=== PATIENT | female | born 1955 | race American Indian/Alaskan Native ===

== ENCOUNTER 2017-10-11 08:56 | Emergency (ER) | payer OTHER ==
[~2017-10-11] VITALS: Ht 162.6 cm; Wt 115.0 kg
[~2017-10-11 08:56] MED LIST: HYDR-569 PO
[2017-10-11 11:12] VITALS: BP 120/68
== END 2017-10-11 11:13 | disposition home or self-care (01) ==
LOC: ER 08:57
DX: R94.31 Abnormal electrocardiogram [ECG] [EKG] (principal); E11.9 Type 2 diabetes mellitus without complications; Z87.891 Personal history of nicotine dependence; Z88.1 Allergy status to other antibiotic agents; Z88.8 Allergy status to other drugs, medicaments and biological substances
CPT/HCPCS: 93005; 99283

== ENCOUNTER 2018-06-30 09:39 | Inpatient (IN) | payer OTHER ==
[~2018-06-30] VITALS: Ht 162.6 cm; Wt 112.3 kg
[~2018-06-30 09:39] MED LIST changes: +HYDR-4383 PO; -HYDR-569 PO
[2018-06-30 10:38] LABS: BASOPHILS % (AUTO) 0.2 % (0-1); EOSINOPHILS % (AUTO) 0 % (0-6); HEMOGLOBIN 11.9 g/dl (12.0-16.0); LYMPHOCYTES # (AUTO) 2.9 X10'3 (1.1-4.8); LYMPHOCYTES % (AUTO) 20.1 % (21-51); MEAN CORPUSCULAR HEMOGLOBIN 32.3 PG (27.0-31.0); MEAN CORPUSCULAR HGB CONC 33.9 % (33.0-36.5); MEAN CORPUSCULAR VOLUME 95.1 FL (78-98); MEAN PLATELET VOLUME 6.9 FL (7.4-10.4); MONOCYTES # (AUTO) 0.8 X10'3 (0-0.9); MONOCYTES % (AUTO) 5.7 % (2-12); NEUTROPHILS # (AUTO) 10.6 X10'3 (1.8-7.7); PLATELET COUNT 269 X10'3 (140-440); RED BLOOD COUNT 3.68 X10'6 (4.20-5.60); RED CELL DISTRIBUTION WIDTH 16.2 % (11.5-14.5); WHITE BLOOD COUNT 14.3 X10'3 (4.5-11.0)
[2018-06-30 10:54] LABS: ALANINE AMINOTRANSFERASE 27 U/L (12-78); ALBUMIN 2.2 G/DL (3.4-5.0); ALBUMIN/GLOBULIN RATIO 0.5 (1.1-1.5); ALKALINE PHOSPHATASE 200 IU/L (46-116); ANION GAP 15 (8-16); ASPARTATE AMINO TRANSFERASE 79 U/L (10-37); BILIRUBIN,TOTAL 4.4 MG/DL (0.1-1.0); BLOOD UREA NITROGEN 11 MG/DL (7-18); BUN/CREATININE RATIO 9.1 (6.6-38.0); CALCIUM 8.7 MG/DL (8.5-10.1); CHLORIDE 94 MMOL/L (99-107); CREATININE 1.21 MG/DL (0.40-0.90); GLUCOSE 89 MG/DL (70-104); POTASSIUM 3.8 MMOL/L (3.5-5.1); SODIUM 130 MMOL/L (135-145); TOTAL CARBON DIOXIDE 20.7 MMOL/L (24-32); TOTAL PROTEIN 6.5 G/DL (6.4-8.2); eGFR 45 ML/MIN
[2018-06-30 11:05] LABS: D-DIMER 0.41 MG/L FEU (0-0.50); PARTIAL THROMBOPLASTIN TIME 69 SECONDS (22-32); PROTHROMBIN TIME 106.5 SECONDS (9.0-12.0)
[2018-06-30 11:10] LABS: INR > 9.0 INR
[2018-06-30] MEDS ORDERED: phytonadione 10 MG/1 ML amp PO ONE (11:35)
[2018-06-30] MEDS ORDERED: normal saline 1000ml 1,000 ML IV ONE (11:45)
[2018-06-30] MEDS ORDERED: CYCL5TAB PO (13:08)
[2018-06-30] MEDS ORDERED: MELO-102 PO (13:08)
[2018-06-30] MEDS ORDERED: PANT40TA4 PO (13:08)
[2018-06-30] MEDS ORDERED: HYDR12.5 PO (13:08)
[2018-06-30] MEDS ORDERED: MONT10TA24 PO (13:08)
[2018-06-30] MEDS ORDERED: OLAN5TAB26 PO (13:08)
[2018-06-30] MEDS ORDERED: METO-384 PO (13:08)
[2018-06-30] MEDS ORDERED: FENO145T25 PO (13:08)
[2018-06-30] MEDS ORDERED: TRAM50TA2 PO (13:08)
[2018-06-30] MEDS ORDERED: METF500T7 PO (13:08)
[2018-06-30] MEDS ORDERED: VENL75CA61 PO (13:08)
[2018-06-30 13:39] LABS: PROTHROMBIN TIME 103.9 SECONDS (9.0-12.0)
[2018-06-30 13:40] LABS: INR > 9.0 INR
[2018-06-30 13:41] LABS: OCCULT BLOOD STOOL POSITIVE (Neg)
[2018-06-30] MEDS ORDERED: insulin Lispro (HumaLOG) vial - multi-dose SQ SCH (13:50)
[2018-06-30] MEDS ORDERED: ipratropium/albuterol 3ml nebule NEB PRN (13:50)
[2018-06-30] MEDS ORDERED: dextrose ORAL solution 15 GM/59 ML bottle PO PRN ×2 (13:50)
[2018-06-30] MEDS ORDERED: magnesium hydroxide 30ml (MOM) UD suspension PO PRN (13:50)
[2018-06-30] MEDS ORDERED: mag hydrox/Alum hydrox/simeth 30ml oral suspension PO PRN (13:50)
[2018-06-30] MEDS ORDERED: acetaminophen 325mg tablet PO PRN (13:50)
[2018-06-30] MEDS ORDERED: glucagon, human recombinant 1mg kit SUBCUT PRN (13:50)
[2018-06-30] MEDS ORDERED: MESSAGE TO PHARMACY PO ONE (13:50)
[2018-06-30] MEDS ORDERED: magnesium 4gm in 100ml NS 100 ML IV PRN (13:50)
[2018-06-30] MEDS ORDERED: potassium Cl 40MEQ/NS 500ml 500 ML IV PRN ×2 (13:50)
[2018-06-30] MEDS ORDERED: potassium Cl 20 mEq SR tablet PO PRN (13:50)
[2018-06-30] MEDS ORDERED: magnesium 1gm/100ml D5W IVPB 100 ML IV PRN (13:50)
[2018-06-30] MEDS ORDERED: ondansetron/PF 4mg/2ml inj IV PRN (13:50)
[2018-06-30] MEDS ORDERED: dextrose 50%-water 50ml dispensing syringe IV PRN ×2 (13:50)
[2018-06-30 14:25] LABS: HEMOGLOBIN A1C 4.2 % (4.5-6.2)
[2018-06-30 16:40] VITALS: BP 107/51
[2018-06-30 16:56] VITALS: BP 105/45
[2018-06-30 18:00] VITALS: BP 107/51
[2018-06-30 18:01] VITALS: BP 96/48
[2018-06-30] MEDS: normal saline 1000ml 1,000 ML IV SCH ×2 (20:09→23:49)
[2018-06-30] MEDS: olanzapine 10mg tablet PO SCH (20:09)
[2018-06-30] MEDS: diatr meglu/diatrizoate 30ml oral sol.-(3 dose) bottle PO SCH (20:09)
[2018-06-30] MEDS: insulin glargine (Lantus) pen - multi-dose SQ SCH (20:54)
[2018-06-30 21:56] VITALS: BP 102/46
[2018-07-01 06:00] VITALS: BP 100/48
[2018-07-01] MEDS: diatr meglu/diatrizoate 30ml oral sol.-(3 dose) bottle PO SCH ×2 (07:23→09:25)
[2018-07-01 07:29] LABS: ALANINE AMINOTRANSFERASE 17 U/L (12-78); ALBUMIN 1.9 G/DL (3.4-5.0); ALKALINE PHOSPHATASE 159 IU/L (46-116); ANION GAP 11 (8-16); BILIRUBIN,TOTAL 7.5 MG/DL (0.1-1.0); BLOOD UREA NITROGEN 12 MG/DL (7-18); BUN/CREATININE RATIO 13.3 (6.6-38.0); CALCIUM 8.5 MG/DL (8.5-10.1); CHLORIDE 100 MMOL/L (99-107); GLUCOSE 86 MG/DL (70-104); HDL CHOLESTEROL 9 MG/DL (35-60); LDL CHOLESTEROL 79 MG/DL (50-100); MAGNESIUM 1.7 MG/DL (1.5-2.4); SODIUM 133 MMOL/L (135-145); TOTAL CARBON DIOXIDE 22.2 MMOL/L (24-32); eGFR 63 ML/MIN
[2018-07-01] MEDS: metoprolol succinate 25mg (24-HOUR) SR. Tablet PO SCH (07:29)
[2018-07-01 07:34] LABS: ALBUMIN/GLOBULIN RATIO 0.5 (1.1-1.5); ASPARTATE AMINO TRANSFERASE 65 U/L (10-37); CHOL/HDL RATIO 11.4 (0.00-4.99); CHOLESTEROL 103 MG/DL (0-200); POTASSIUM 3.7 MMOL/L (3.5-5.1); TOTAL PROTEIN 5.7 G/DL (6.4-8.2); TRIGLYCERIDES 139 MG/DL (20-135)
[2018-07-01 07:35] LABS: INR 1.9 INR
[2018-07-01] MEDS: K and/or MAG REPLACEMENT MC SCH (08:00)
[2018-07-01] MEDS: normal saline 1000ml 1,000 ML IV SCH (09:49)
[2018-07-01 10:00] VITALS: BP 109/50
[2018-07-01 10:57] LABS: BASOPHILS % (AUTO) 0.2 % (0-1); EOSINOPHILS # (AUTO) 0.1 X10'3 (0-0.9); HEMATOCRIT 32.1 % (35.0-45.0); HEMOGLOBIN 10.9 g/dl (12.0-16.0); LYMPHOCYTES # (AUTO) 2.9 X10'3 (1.1-4.8); LYMPHOCYTES % (AUTO) 22.8 % (21-51); MEAN CORPUSCULAR HEMOGLOBIN 32.8 PG (27.0-31.0); MEAN CORPUSCULAR HGB CONC 34.1 % (33.0-36.5); MEAN CORPUSCULAR VOLUME 96.4 FL (78-98); MEAN PLATELET VOLUME 6.7 FL (7.4-10.4); NEUTROPHILS # (AUTO) 8.8 X10'3 (1.8-7.7); PLATELET COUNT 221 X10'3 (140-440); RED BLOOD COUNT 3.33 X10'6 (4.20-5.60); WHITE BLOOD COUNT 12.9 X10'3 (4.5-11.0)
[2018-07-01] MEDS: venlafaxine XR 75mg capsule (Q24H) PO SCH (15:33)
[2018-07-01] MEDS: olanzapine 10mg tablet PO SCH ×2 (15:34→20:04)
[2018-07-01] MEDS: montelukast 10mg tablet PO SCH (15:34)
[2018-07-01] MEDS ORDERED: lactulose 20gm/30ml cup PO PRN (17:00)
[2018-07-01 18:00] VITALS: BP 103/49
[2018-07-01] MEDS: lactulose 20gm/30ml cup PO SCH (20:05)
[2018-07-01] MEDS: insulin glargine (Lantus) pen - multi-dose SQ SCH (21:00)
[2018-07-01 22:00] VITALS: BP 105/51
[2018-07-02 06:00] VITALS: BP 101/48
[2018-07-02 07:05] VITALS: BP 97/45
[2018-07-02 07:24] LABS: BASOPHILS % (AUTO) 0.3 % (0-1); EOSINOPHILS # (AUTO) 0.2 X10'3 (0-0.9); EOSINOPHILS % (AUTO) 1.4 % (0-6); HEMATOCRIT 33.6 % (35.0-45.0); HEMOGLOBIN 11.5 g/dl (12.0-16.0); LYMPHOCYTES # (AUTO) 2.5 X10'3 (1.1-4.8); LYMPHOCYTES % (AUTO) 22.4 % (21-51); MEAN CORPUSCULAR HEMOGLOBIN 33.1 PG (27.0-31.0); MEAN CORPUSCULAR HGB CONC 34.2 % (33.0-36.5); MEAN CORPUSCULAR VOLUME 96.8 FL (78-98); MEAN PLATELET VOLUME 6.8 FL (7.4-10.4); MONOCYTES % (AUTO) 8.6 % (2-12); NEUTROPHILS # (AUTO) 7.6 X10'3 (1.8-7.7); NEUTROPHILS % (AUTO) 67.3 % (42-75); PLATELET COUNT 167 X10'3 (140-440); RED BLOOD COUNT 3.47 X10'6 (4.20-5.60); RED CELL DISTRIBUTION WIDTH 16.1 % (11.5-14.5); WHITE BLOOD COUNT 11.2 X10'3 (4.5-11.0)
[2018-07-02 07:46] LABS: INR 1.5 INR; PROTHROMBIN TIME 14.7 SECONDS (9.0-12.0)
[2018-07-02 07:49] LABS: ALANINE AMINOTRANSFERASE 16 U/L (12-78); ALBUMIN 1.9 G/DL (3.4-5.0); ALKALINE PHOSPHATASE 159 IU/L (46-116); ANION GAP 11 (8-16); BILIRUBIN,TOTAL 10.1 MG/DL (0.1-1.0); BLOOD UREA NITROGEN 10 MG/DL (7-18); BUN/CREATININE RATIO 11.1 (6.6-38.0); CALCIUM 8.3 MG/DL (8.5-10.1); CHLORIDE 99 MMOL/L (99-107); GLUCOSE 108 MG/DL (70-104); MAGNESIUM 1.7 MG/DL (1.5-2.4); SODIUM 135 MMOL/L (135-145); TOTAL CARBON DIOXIDE 24.7 MMOL/L (24-32); eGFR 63 ML/MIN
[2018-07-02 07:51] LABS: ALBUMIN/GLOBULIN RATIO 0.5 (1.1-1.5); ASPARTATE AMINO TRANSFERASE 64 U/L (10-37); POTASSIUM 3.3 MMOL/L (3.5-5.1); TOTAL PROTEIN 5.8 G/DL (6.4-8.2)
[2018-07-02] MEDS: lactulose 20gm/30ml cup PO SCH ×2 (08:00→21:01)
[2018-07-02] MEDS: metoprolol succinate 25mg (24-HOUR) SR. Tablet PO SCH (08:00)
[2018-07-02] MEDS: K and/or MAG REPLACEMENT MC SCH (08:00)
[2018-07-02] MEDS: montelukast 10mg tablet PO SCH (09:40)
[2018-07-02] MEDS: potassium Cl 20 mEq SR tablet PO PRN ×2 (09:40→13:52)
[2018-07-02] MEDS: olanzapine 10mg tablet PO SCH ×2 (09:41→21:01)
[2018-07-02] MEDS: venlafaxine XR 75mg capsule (Q24H) PO SCH (09:42)
[2018-07-02 10:00] VITALS: BP 110/55
[2018-07-02 18:00] VITALS: BP 104/54
[2018-07-02] MEDS ORDERED: furosemide 20 MG/2 ML vial IV ONE (19:30)
[2018-07-02] MEDS: insulin glargine (Lantus) pen - multi-dose SQ SCH (21:00)
[2018-07-02] MEDS: propranolol 10mg tablet PO SCH (21:00)
[2018-07-02 22:00] VITALS: BP 118/52
[2018-07-03] VITALS (11 sets, daily range): BP systolic 92–151; BP diastolic 41–75
[2018-07-03 05:39] LABS: BASOPHILS % (AUTO) 0.3 % (0-1); EOSINOPHILS # (AUTO) 0.1 X10'3 (0-0.9); EOSINOPHILS % (AUTO) 1.1 % (0-6); HEMATOCRIT 28.7 % (35.0-45.0); HEMOGLOBIN 9.9 g/dl (12.0-16.0); LYMPHOCYTES # (AUTO) 2.5 X10'3 (1.1-4.8); LYMPHOCYTES % (AUTO) 23.2 % (21-51); MEAN CORPUSCULAR HEMOGLOBIN 33.2 PG (27.0-31.0); MEAN CORPUSCULAR HGB CONC 34.4 % (33.0-36.5); MEAN CORPUSCULAR VOLUME 96.5 FL (78-98); MEAN PLATELET VOLUME 6.5 FL (7.4-10.4); MONOCYTES # (AUTO) 0.9 X10'3 (0-0.9); NEUTROPHILS # (AUTO) 7.4 X10'3 (1.8-7.7); NEUTROPHILS % (AUTO) 67.4 % (42-75); PLATELET COUNT 187 X10'3 (140-440); RED BLOOD COUNT 2.97 X10'6 (4.20-5.60); RED CELL DISTRIBUTION WIDTH 15.9 % (11.5-14.5)
[2018-07-03 05:53] LABS: ALANINE AMINOTRANSFERASE 16 U/L (12-78); ALBUMIN 1.9 G/DL (3.4-5.0); ALKALINE PHOSPHATASE 161 IU/L (46-116); ANION GAP 11 (8-16); ASPARTATE AMINO TRANSFERASE 61 U/L (10-37); BILIRUBIN,TOTAL 11.2 MG/DL (0.1-1.0); BLOOD UREA NITROGEN 8 MG/DL (7-18); BUN/CREATININE RATIO 9.5 (6.6-38.0); CALCIUM 8.6 MG/DL (8.5-10.1); CHLORIDE 99 MMOL/L (99-107); CREATININE 0.84 MG/DL (0.40-0.90); GLUCOSE 102 MG/DL (70-104); MAGNESIUM 1.6 MG/DL (1.5-2.4); SODIUM 134 MMOL/L (135-145); TOTAL CARBON DIOXIDE 24.4 MMOL/L (24-32); eGFR 68 ML/MIN
[2018-07-03 05:54] LABS: INR 1.5 INR; PROTHROMBIN TIME 14.5 SECONDS (9.0-12.0)
[2018-07-03 05:57] LABS: ALBUMIN/GLOBULIN RATIO 0.5 (1.1-1.5); POTASSIUM 3.6 MMOL/L (3.5-5.1); TOTAL PROTEIN 5.7 G/DL (6.4-8.2)
[2018-07-03] MEDS: furosemide 20 MG/2 ML vial IV SCH ×2 (08:36→20:00)
[2018-07-03] MEDS: venlafaxine XR 75mg capsule (Q24H) PO SCH (08:36)
[2018-07-03] MEDS: lactulose 20gm/30ml cup PO SCH ×4 (08:36→20:38)
[2018-07-03] MEDS: spironolactone 25 MG tablet PO SCH (08:37)
[2018-07-03] MEDS: montelukast 10mg tablet PO SCH (08:37)
[2018-07-03] MEDS: olanzapine 10mg tablet PO SCH ×2 (08:37→20:38)
[2018-07-03] MEDS: propranolol 10mg tablet PO SCH ×3 (08:37→20:25)
[2018-07-03] MEDS: K and/or MAG REPLACEMENT MC SCH (08:38)
[2018-07-03] MEDS ORDERED: lactulose 20gm/30ml cup PO SCH (12:00)
[2018-07-03] MEDS ORDERED: octreotide inj. 1,250 MCG in normal saline 250ml IV soln 243.75 ML IV SCH (15:35)
[2018-07-03] MEDS ORDERED: magnesium Cl slow-release 64mg tablet PO PRN (15:35)
[2018-07-03] MEDS ORDERED: octreotide 100mcg/1 ml ampule IV ONE (15:35)
[2018-07-03] MEDS ORDERED: potassium Cl 40MEQ/NS 500ml 500 ML IV PRN ×2 (15:35)
[2018-07-03] MEDS ORDERED: magnesium 4gm in 100ml NS 100 ML IV PRN (15:35)
[2018-07-03] MEDS ORDERED: potassium Cl 20 mEq SR tablet PO PRN (15:35)
[2018-07-03] MEDS ORDERED: pantoprazole 40MG/NS 100ML BAG 100 ML IV SCH (16:00)
[2018-07-03] MEDS ORDERED: MIDAZolam 5mg/5ml vial ONE (16:48)
[2018-07-03] MEDS ORDERED: fentaNYL/PF 50MCG/1 ML 2ML syringe ONE (16:48)
[2018-07-03] MEDS ORDERED: LIDOcaine Viscous 15ml cup ONE (16:49)
[2018-07-03] MEDS: pantoprazole 40 MG vial IV SCH (20:38)
[2018-07-03] MEDS: rifaximin 550mg tablet PO SCH (20:38)
[2018-07-03] MEDS: insulin glargine (Lantus) pen - multi-dose SQ SCH (20:47)
[2018-07-04] MEDS: lactulose 20gm/30ml cup PO SCH ×6 (00:24→20:43)
[2018-07-04 05:20] LABS: BASOPHILS % (AUTO) 0.4 % (0-1); EOSINOPHILS % (AUTO) 0 % (0-6); HEMATOCRIT 29.6 % (35.0-45.0); HEMOGLOBIN 10.1 g/dl (12.0-16.0); LYMPHOCYTES # (AUTO) 2.6 X10'3 (1.1-4.8); LYMPHOCYTES % (AUTO) 25.7 % (21-51); MEAN CORPUSCULAR HEMOGLOBIN 33.5 PG (27.0-31.0); MEAN CORPUSCULAR HGB CONC 34.2 % (33.0-36.5); MEAN CORPUSCULAR VOLUME 97.9 FL (78-98); MEAN PLATELET VOLUME 6.5 FL (7.4-10.4); MONOCYTES # (AUTO) 0.6 X10'3 (0-0.9); MONOCYTES % (AUTO) 6.2 % (2-12); NEUTROPHILS # (AUTO) 6.7 X10'3 (1.8-7.7); NEUTROPHILS % (AUTO) 67.7 % (42-75); PLATELET COUNT 187 X10'3 (140-440); RED BLOOD COUNT 3.03 X10'6 (4.20-5.60); WHITE BLOOD COUNT 9.9 X10'3 (4.5-11.0)
[2018-07-04 05:42] LABS: INR 1.4 INR; PROTHROMBIN TIME 13.7 SECONDS (9.0-12.0)
[2018-07-04 05:59] LABS: ALANINE AMINOTRANSFERASE 18 U/L (12-78); ALKALINE PHOSPHATASE 147 IU/L (46-116); ANION GAP 10 (8-16); ASPARTATE AMINO TRANSFERASE 63 U/L (10-37); BILIRUBIN,TOTAL 11.1 MG/DL (0.1-1.0); BLOOD UREA NITROGEN 7 MG/DL (7-18); BUN/CREATININE RATIO 8.9 (6.6-38.0); CALCIUM 8.7 MG/DL (8.5-10.1); CHLORIDE 100 MMOL/L (99-107); CREATININE 0.79 MG/DL (0.40-0.90); GLUCOSE 102 MG/DL (70-104); MAGNESIUM 1.7 MG/DL (1.5-2.4); SODIUM 137 MMOL/L (135-145); TOTAL CARBON DIOXIDE 26.8 MMOL/L (24-32); eGFR 74 ML/MIN
[2018-07-04 06:00] LABS: ALBUMIN/GLOBULIN RATIO 0.5 (1.1-1.5); POTASSIUM 3.2 MMOL/L (3.5-5.1); TOTAL PROTEIN 5.8 G/DL (6.4-8.2)
[2018-07-04] MEDS: K and/or MAG REPLACEMENT MC SCH (07:58)
[2018-07-04] MEDS: montelukast 10mg tablet PO SCH (08:10)
[2018-07-04] MEDS: furosemide 20 MG/2 ML vial IV SCH ×3 (08:10→21:21)
[2018-07-04] MEDS: propranolol 10mg tablet PO SCH ×3 (08:10→21:00)
[2018-07-04] MEDS: pantoprazole 40 MG vial IV SCH ×2 (08:10→21:11)
[2018-07-04] MEDS: venlafaxine XR 75mg capsule (Q24H) PO SCH (08:10)
[2018-07-04] MEDS: olanzapine 10mg tablet PO SCH ×2 (08:11→20:44)
[2018-07-04] MEDS: potassium Cl 20 mEq SR tablet PO PRN ×3 (08:11→16:23)
[2018-07-04] MEDS: rifaximin 550mg tablet PO SCH ×2 (08:11→20:44)
[2018-07-04] MEDS: spironolactone 25 MG tablet PO SCH (08:11)
[2018-07-04 10:00] VITALS: BP 122/65
[2018-07-04 15:16] VITALS: BP 98/56
[2018-07-04 18:00] VITALS: BP 112/61
[2018-07-04] MEDS: insulin glargine (Lantus) pen - multi-dose SQ SCH (21:00)
[2018-07-04 22:00] VITALS: BP 113/64
[2018-07-05] MEDS: lactulose 20gm/30ml cup PO SCH ×4 (01:31→20:21)
[2018-07-05 06:00] VITALS: BP 115/61
[2018-07-05 07:16] LABS: ALBUMIN 1.8 G/DL (3.4-5.0); ANION GAP 8 (8-16); CALCIUM 8.4 MG/DL (8.5-10.1); CHLORIDE 102 MMOL/L (99-107); CREATININE 0.81 MG/DL (0.40-0.90); GLUCOSE 98 MG/DL (70-104); MAGNESIUM 1.6 MG/DL (1.5-2.4); SODIUM 137 MMOL/L (135-145); TOTAL CARBON DIOXIDE 26.9 MMOL/L (24-32); eGFR 71 ML/MIN
[2018-07-05 07:20] LABS: POTASSIUM 3.5 MMOL/L (3.5-5.1)
[2018-07-05 07:23] LABS: BASOPHILS % (AUTO) 0 % (0-1); EOSINOPHILS # (AUTO) 0.1 X10'3 (0-0.9); EOSINOPHILS % (AUTO) 0.6 % (0-6); HEMATOCRIT 27.5 % (35.0-45.0); HEMOGLOBIN 9.4 g/dl (12.0-16.0); LYMPHOCYTES # (AUTO) 2.1 X10'3 (1.1-4.8); LYMPHOCYTES % (AUTO) 22.6 % (21-51); MEAN CORPUSCULAR HEMOGLOBIN 33.6 PG (27.0-31.0); MEAN CORPUSCULAR HGB CONC 34.2 % (33.0-36.5); MEAN CORPUSCULAR VOLUME 98.1 FL (78-98); MEAN PLATELET VOLUME 6.7 FL (7.4-10.4); MONOCYTES # (AUTO) 0.8 X10'3 (0-0.9); MONOCYTES % (AUTO) 8.5 % (2-12); NEUTROPHILS # (AUTO) 6.3 X10'3 (1.8-7.7); NEUTROPHILS % (AUTO) 68.3 % (42-75); PLATELET COUNT 192 X10'3 (140-440); RED CELL DISTRIBUTION WIDTH 15.8 % (11.5-14.5); WHITE BLOOD COUNT 9.2 X10'3 (4.5-11.0)
[2018-07-05 07:29] LABS: ALANINE AMINOTRANSFERASE 16 U/L (12-78); ASPARTATE AMINO TRANSFERASE 52 U/L (10-37); BLOOD UREA NITROGEN 6 MG/DL (7-18); BUN/CREATININE RATIO 7.4 (6.6-38.0)
[2018-07-05 07:33] LABS: ALBUMIN/GLOBULIN RATIO 0.5 (1.1-1.5); TOTAL PROTEIN 5.4 G/DL (6.4-8.2)
[2018-07-05 07:37] LABS: ALKALINE PHOSPHATASE 132 IU/L (46-116)
[2018-07-05 07:40] LABS: INR 1.5 INR; PROTHROMBIN TIME 14.7 SECONDS (9.0-12.0)
[2018-07-05] MEDS: K and/or MAG REPLACEMENT MC SCH (08:00)
[2018-07-05] MEDS: venlafaxine XR 75mg capsule (Q24H) PO SCH (08:31)
[2018-07-05] MEDS: olanzapine 10mg tablet PO SCH ×2 (08:31→20:21)
[2018-07-05] MEDS: montelukast 10mg tablet PO SCH (08:31)
[2018-07-05] MEDS: rifaximin 550mg tablet PO SCH ×2 (08:31→20:21)
[2018-07-05] MEDS: propranolol 10mg tablet PO SCH ×3 (08:32→20:21)
[2018-07-05] MEDS: pantoprazole 40 MG vial IV SCH ×2 (08:32→20:21)
[2018-07-05] MEDS: furosemide 20 MG/2 ML vial IV SCH ×2 (08:32→20:21)
[2018-07-05] MEDS: spironolactone 25 MG tablet PO SCH (08:32)
[2018-07-05 10:00] VITALS: BP 103/63
[2018-07-05 12:12] LABS: HIV ANTIBODY 1&2 RAPID NON-REACTIVE (Neg)
[2018-07-05 17:15] VITALS: BP 115/66
[2018-07-05 18:00] VITALS: BP 96/52
[2018-07-05] MEDS: lactobacillus rhamnosus 10,000 MMU CELLS/CAPSULE PO SCH (20:21)
[2018-07-05] MEDS: insulin glargine (Lantus) pen - multi-dose SQ SCH (21:00)
[2018-07-05 21:14] VITALS: BP 121/66
[2018-07-05 22:00] VITALS: BP 118/65
[2018-07-05] MEDS: nystatin 15 GM powder TP SCH (22:06)
[2018-07-06] MEDS: lactulose 20gm/30ml cup PO SCH ×4 (02:53→19:29)
[2018-07-06 06:00] VITALS: BP 124/69
[2018-07-06] MEDS: pantoprazole 40 MG vial IV SCH ×2 (07:53→19:29)
[2018-07-06] MEDS: furosemide 20 MG/2 ML vial IV SCH (07:56)
[2018-07-06] MEDS: venlafaxine XR 75mg capsule (Q24H) PO SCH (07:57)
[2018-07-06] MEDS: lactobacillus rhamnosus 10,000 MMU CELLS/CAPSULE PO SCH ×2 (07:57→19:29)
[2018-07-06] MEDS: propranolol 10mg tablet PO SCH ×3 (07:57→21:24)
[2018-07-06] MEDS: montelukast 10mg tablet PO SCH (07:57)
[2018-07-06] MEDS: spironolactone 25 MG tablet PO SCH (07:58)
[2018-07-06] MEDS: olanzapine 10mg tablet PO SCH ×2 (07:58→19:29)
[2018-07-06] MEDS: nystatin 15 GM powder TP SCH ×3 (07:58→21:24)
[2018-07-06] MEDS: rifaximin 550mg tablet PO SCH ×2 (07:58→19:29)
[2018-07-06] MEDS: K and/or MAG REPLACEMENT MC SCH (08:00)
[2018-07-06 08:34] LABS: BASOPHILS % (AUTO) 0.3 % (0-1); EOSINOPHILS # (AUTO) 0.1 X10'3 (0-0.9); EOSINOPHILS % (AUTO) 1.1 % (0-6); HEMATOCRIT 30.7 % (35.0-45.0); HEMOGLOBIN 10.3 g/dl (12.0-16.0); LYMPHOCYTES # (AUTO) 2.1 X10'3 (1.1-4.8); LYMPHOCYTES % (AUTO) 19.9 % (21-51); MEAN CORPUSCULAR HEMOGLOBIN 33.1 PG (27.0-31.0); MEAN CORPUSCULAR HGB CONC 33.5 % (33.0-36.5); MEAN CORPUSCULAR VOLUME 98.9 FL (78-98); MEAN PLATELET VOLUME 7.2 FL (7.4-10.4); MONOCYTES % (AUTO) 9.8 % (2-12); NEUTROPHILS # (AUTO) 7.4 X10'3 (1.8-7.7); NEUTROPHILS % (AUTO) 68.9 % (42-75); PLATELET COUNT 222 X10'3 (140-440); RED CELL DISTRIBUTION WIDTH 16.3 % (11.5-14.5); WHITE BLOOD COUNT 10.7 X10'3 (4.5-11.0)
[2018-07-06 08:48] LABS: ALANINE AMINOTRANSFERASE 20 U/L (12-78); ALBUMIN 1.9 G/DL (3.4-5.0); ALKALINE PHOSPHATASE 140 IU/L (46-116); ANION GAP 11 (8-16); ASPARTATE AMINO TRANSFERASE 53 U/L (10-37); BILIRUBIN,TOTAL 9.2 MG/DL (0.1-1.0); BLOOD UREA NITROGEN 6 MG/DL (7-18); BUN/CREATININE RATIO 7.1 (6.6-38.0); CALCIUM 8.3 MG/DL (8.5-10.1); CHLORIDE 98 MMOL/L (99-107); CREATININE 0.84 MG/DL (0.40-0.90); GLUCOSE 107 MG/DL (70-104); MAGNESIUM 1.6 MG/DL (1.5-2.4); SODIUM 134 MMOL/L (135-145); eGFR 68 ML/MIN
[2018-07-06 08:50] LABS: ALBUMIN/GLOBULIN RATIO 0.5 (1.1-1.5); PHOSPHORUS 1.5 MG/DL (2.3-4.5); POTASSIUM 3.3 MMOL/L (3.5-5.1); TOTAL PROTEIN 5.9 G/DL (6.4-8.2)
[2018-07-06 09:16] LABS: INR 1.4 INR; PROTHROMBIN TIME 14.2 SECONDS (9.0-12.0)
[2018-07-06 10:00] VITALS: BP 119/66
[2018-07-06 13:15] LABS: HBSAG SCREEN Negative (Negative); HEP A AB, IGM Negative (Negative); HEP B CORE AB, IGM Negative (Negative); HEPATITIS C ANTIBODY <0.1 s/co ratio (0.0-0.9)
[2018-07-06] MEDS: potassium Cl 20 mEq SR tablet PO PRN ×3 (13:34→21:57)
[2018-07-06 18:00] VITALS: BP 110/59
[2018-07-06] MEDS: insulin glargine (Lantus) pen - multi-dose SQ SCH (21:00)
[2018-07-06 22:00] VITALS: BP 110/63
[2018-07-07] MEDS: lactulose 20gm/30ml cup PO SCH ×4 (02:00→19:40)
[2018-07-07 06:00] VITALS: BP 103/65
[2018-07-07] MEDS: K and/or MAG REPLACEMENT MC SCH (08:00)
[2018-07-07 08:14] LABS: ALANINE AMINOTRANSFERASE 15 U/L (12-78); ALBUMIN 1.8 G/DL (3.4-5.0); ALKALINE PHOSPHATASE 125 IU/L (46-116); ANION GAP 8 (8-16); ASPARTATE AMINO TRANSFERASE 48 U/L (10-37); BILIRUBIN,TOTAL 8.6 MG/DL (0.1-1.0); BLOOD UREA NITROGEN 5 MG/DL (7-18); CALCIUM 8.4 MG/DL (8.5-10.1); CHLORIDE 102 MMOL/L (99-107); CREATININE 0.83 MG/DL (0.40-0.90); GLUCOSE 100 MG/DL (70-104); MAGNESIUM 1.6 MG/DL (1.5-2.4); SODIUM 136 MMOL/L (135-145); TOTAL CARBON DIOXIDE 26.3 MMOL/L (24-32); eGFR 69 ML/MIN
[2018-07-07 08:20] LABS: ALBUMIN/GLOBULIN RATIO 0.5 (1.1-1.5); PHOSPHORUS 1.5 MG/DL (2.3-4.5); POTASSIUM 3.8 MMOL/L (3.5-5.1); TOTAL PROTEIN 5.4 G/DL (6.4-8.2)
[2018-07-07] MEDS: propranolol 10mg tablet PO SCH ×3 (08:20→21:00)
[2018-07-07] MEDS: lactobacillus rhamnosus 10,000 MMU CELLS/CAPSULE PO SCH ×2 (08:20→19:40)
[2018-07-07] MEDS: venlafaxine XR 75mg capsule (Q24H) PO SCH (08:20)
[2018-07-07] MEDS: furosemide 40mg tablet PO SCH (08:20)
[2018-07-07] MEDS: olanzapine 10mg tablet PO SCH ×2 (08:21→19:40)
[2018-07-07] MEDS: rifaximin 550mg tablet PO SCH ×2 (08:21→19:40)
[2018-07-07] MEDS: pantoprazole 40mg Tablet.DR PO SCH ×2 (08:21→19:40)
[2018-07-07] MEDS: montelukast 10mg tablet PO SCH (08:21)
[2018-07-07] MEDS: spironolactone 25 MG tablet PO SCH (08:21)
[2018-07-07] MEDS: nystatin 15 GM powder TP SCH ×3 (08:23→21:00)
[2018-07-07 08:25] LABS: BASOPHILS % (AUTO) 0.2 % (0-1); EOSINOPHILS % (AUTO) 0 % (0-6); HEMATOCRIT 27.9 % (35.0-45.0); HEMOGLOBIN 9.4 g/dl (12.0-16.0); LYMPHOCYTES % (AUTO) 20.7 % (21-51); MEAN CORPUSCULAR HEMOGLOBIN 33.4 PG (27.0-31.0); MEAN CORPUSCULAR HGB CONC 33.7 % (33.0-36.5); MEAN CORPUSCULAR VOLUME 99.2 FL (78-98); MEAN PLATELET VOLUME 6.9 FL (7.4-10.4); MONOCYTES # (AUTO) 0.9 X10'3 (0-0.9); MONOCYTES % (AUTO) 9.7 % (2-12); NEUTROPHILS # (AUTO) 6.7 X10'3 (1.8-7.7); NEUTROPHILS % (AUTO) 69.4 % (42-75); PLATELET COUNT 197 X10'3 (140-440); RED BLOOD COUNT 2.81 X10'6 (4.20-5.60); RED CELL DISTRIBUTION WIDTH 16.4 % (11.5-14.5); WHITE BLOOD COUNT 9.7 X10'3 (4.5-11.0)
[2018-07-07 08:29] LABS: INR 1.5 INR; PROTHROMBIN TIME 14.6 SECONDS (9.0-12.0)
[2018-07-07 10:00] VITALS: BP 113/63
[2018-07-07 18:00] VITALS: BP 107/59
[2018-07-07] MEDS: insulin glargine (Lantus) pen - multi-dose SQ SCH (21:00)
[2018-07-07] MEDS: Neutra Phos packet PO SCH (21:00)
[2018-07-07 22:00] VITALS: BP 96/53
[2018-07-08] MEDS: lactulose 20gm/30ml cup PO SCH ×4 (01:32→20:22)
[2018-07-08 06:00] VITALS: BP 102/59
[2018-07-08 06:12] LABS: BASOPHILS % (AUTO) 0.5 % (0-1); EOSINOPHILS % (AUTO) 0 % (0-6); HEMATOCRIT 26.9 % (35.0-45.0); HEMOGLOBIN 9.1 g/dl (12.0-16.0); LYMPHOCYTES # (AUTO) 2.2 X10'3 (1.1-4.8); LYMPHOCYTES % (AUTO) 23.6 % (21-51); MEAN CORPUSCULAR HEMOGLOBIN 33.3 PG (27.0-31.0); MEAN CORPUSCULAR HGB CONC 33.7 % (33.0-36.5); MEAN CORPUSCULAR VOLUME 98.9 FL (78-98); MEAN PLATELET VOLUME 7.1 FL (7.4-10.4); MONOCYTES # (AUTO) 0.8 X10'3 (0-0.9); MONOCYTES % (AUTO) 9.1 % (2-12); NEUTROPHILS # (AUTO) 6.2 X10'3 (1.8-7.7); NEUTROPHILS % (AUTO) 66.8 % (42-75); PLATELET COUNT 191 X10'3 (140-440); RED BLOOD COUNT 2.72 X10'6 (4.20-5.60); RED CELL DISTRIBUTION WIDTH 17.1 % (11.5-14.5); WHITE BLOOD COUNT 9.3 X10'3 (4.5-11.0)
[2018-07-08 06:26] LABS: INR 1.4 INR; PROTHROMBIN TIME 14.4 SECONDS (9.0-12.0)
[2018-07-08 06:27] LABS: ALANINE AMINOTRANSFERASE 16 U/L (12-78); ALBUMIN 1.7 G/DL (3.4-5.0); ALKALINE PHOSPHATASE 123 IU/L (46-116); ANION GAP 9 (8-16); ASPARTATE AMINO TRANSFERASE 48 U/L (10-37); BILIRUBIN,TOTAL 8.4 MG/DL (0.1-1.0); BLOOD UREA NITROGEN 5 MG/DL (7-18); BUN/CREATININE RATIO 6.3 (6.6-38.0); CALCIUM 8.4 MG/DL (8.5-10.1); CHLORIDE 102 MMOL/L (99-107); GLUCOSE 103 MG/DL (70-104); SODIUM 138 MMOL/L (135-145); TOTAL CARBON DIOXIDE 26.6 MMOL/L (24-32); eGFR 72 ML/MIN
[2018-07-08 06:38] LABS: ALBUMIN/GLOBULIN RATIO 0.5 (1.1-1.5); PHOSPHORUS 2.4 MG/DL (2.3-4.5); POTASSIUM 3.4 MMOL/L (3.5-5.1); TOTAL PROTEIN 5.4 G/DL (6.4-8.2)
[2018-07-08] MEDS: K and/or MAG REPLACEMENT MC SCH (08:00)
[2018-07-08] MEDS: rifaximin 550mg tablet PO SCH ×2 (08:08→20:21)
[2018-07-08] MEDS: lactobacillus rhamnosus 10,000 MMU CELLS/CAPSULE PO SCH ×2 (08:08→20:22)
[2018-07-08] MEDS: olanzapine 10mg tablet PO SCH ×2 (08:08→20:22)
[2018-07-08] MEDS: furosemide 40mg tablet PO SCH (08:08)
[2018-07-08] MEDS: propranolol 10mg tablet PO SCH ×3 (08:08→21:00)
[2018-07-08] MEDS: pantoprazole 40mg Tablet.DR PO SCH ×2 (08:08→20:22)
[2018-07-08] MEDS: Neutra Phos packet PO SCH ×3 (08:08→20:22)
[2018-07-08] MEDS: spironolactone 25 MG tablet PO SCH (08:08)
[2018-07-08] MEDS: venlafaxine XR 75mg capsule (Q24H) PO SCH (08:08)
[2018-07-08] MEDS: montelukast 10mg tablet PO SCH (08:08)
[2018-07-08] MEDS: nystatin 15 GM powder TP SCH ×3 (08:12→20:31)
[2018-07-08 10:00] VITALS: BP 110/61
[2018-07-08 18:02] VITALS: BP 100/58
[2018-07-08] MEDS: insulin glargine (Lantus) pen - multi-dose SQ SCH (21:00)
[2018-07-08 21:33] VITALS: BP 91/51
[2018-07-09] MEDS: lactulose 20gm/30ml cup PO SCH ×3 (01:59→13:20)
[2018-07-09 06:00] VITALS: BP 117/65
[2018-07-09] MEDS: lactobacillus rhamnosus 10,000 MMU CELLS/CAPSULE PO SCH (07:33)
[2018-07-09] MEDS: venlafaxine XR 75mg capsule (Q24H) PO SCH (07:33)
[2018-07-09] MEDS: propranolol 10mg tablet PO SCH ×2 (07:34→13:21)
[2018-07-09] MEDS: pantoprazole 40mg Tablet.DR PO SCH (07:35)
[2018-07-09] MEDS: olanzapine 10mg tablet PO SCH (07:35)
[2018-07-09] MEDS: Neutra Phos packet PO SCH ×2 (07:35→13:20)
[2018-07-09] MEDS: furosemide 40mg tablet PO SCH (07:35)
[2018-07-09] MEDS: rifaximin 550mg tablet PO SCH (07:35)
[2018-07-09] MEDS: montelukast 10mg tablet PO SCH (07:35)
[2018-07-09] MEDS: nystatin 15 GM powder TP SCH ×2 (07:36→13:20)
[2018-07-09] MEDS: K and/or MAG REPLACEMENT MC SCH (08:00)
[2018-07-09] MEDS: spironolactone 25 MG tablet PO SCH (08:30)
[2018-07-09 10:00] VITALS: BP 104/58
[2018-07-09] MEDS ORDERED: PANT40TA4 PO (11:32)
[2018-07-09] MEDS ORDERED: PROP10TA10 PO (11:32)
[2018-07-09] MEDS ORDERED: LACT10SO32 PO (11:32)
[2018-07-09] MEDS ORDERED: MONT10TA24 PO (11:32)
[2018-07-09] MEDS ORDERED: RIFA550T PO (11:32)
[2018-07-09] MEDS ORDERED: SPIR25TA PO (11:32)
[2018-07-09] MEDS ORDERED: FURO40TA4 PO (11:32)
== END 2018-07-09 15:15 | disposition home or self-care (01) | DRG 441 ==
LOC: ER 09:40 → ED HOLD 13:49 → ORTHO 4S 16:55
PROVIDERS: ADMIT Family Medicine; ATTEND Hospitalist
PROC: 30233L1 Transfusion of Nonautologous Fresh Plasma into Peripheral Vein, Percutaneous Approach (ICD-10-PCS; 2018-06-30)
PROC: 30233K1 Transfusion of Nonautologous Frozen Plasma into Peripheral Vein, Percutaneous Approach (ICD-10-PCS; 2018-06-30)
PROC: 0DJ08ZZ Inspection of Upper Intestinal Tract, Via Natural or Artificial Opening Endoscopic (ICD-10-PCS; principal; 2018-07-03)
DX: K72.00 Acute and subacute hepatic failure without coma (principal); K29.71 Gastritis, unspecified, with bleeding; Z68.41 Body mass index [BMI] 40.0-44.9, adult; E87.1 Hypo-osmolality and hyponatremia; K76.6 Portal hypertension; K20.9 Esophagitis, unspecified; K70.31 Alcoholic cirrhosis of liver with ascites; K31.89 Other diseases of stomach and duodenum; D50.0 Iron deficiency anemia secondary to blood loss (chronic); E11.9 Type 2 diabetes mellitus without complications; Z60.2 Problems related to living alone; E87.6 Hypokalemia; E66.01 Morbid (severe) obesity due to excess calories; I10 Essential (primary) hypertension; Z74.01 Bed confinement status; Z90.49 Acquired absence of other specified parts of digestive tract; Z90.710 Acquired absence of both cervix and uterus; Z88.8 Allergy status to other drugs, medicaments and biological substances; Z79.899 Other long term (current) drug therapy; Z79.01 Long term (current) use of anticoagulants; Z79.84 Long term (current) use of oral hypoglycemic drugs; Z82.49 Family history of ischemic heart disease and other diseases of the circulatory system
CPT/HCPCS: 36415; 36430; 70450; 71045; 74176; 74181; 80053; 80061; 82140; 82248; 82272; 82948; 83036; 83735; 83880; 84100; 85025; 85379; 85610; 85730; 86703; 86705; 86706; 86709; 86803; 86885; 86900; 86901; 87070; 87340; 93005; 93306; 94760; 96360; 97110; 97116; 97161; 97530; 99152; 99285; A4620; C9113; G0378; J1815; J1940; J2250; J2354; J2405; J3010; J3430; J3490; J7030; P9059; Q9963

== ENCOUNTER 2018-07-24 10:16 | Inpatient (IN) | payer OTHER ==
[~2018-07-24] VITALS: Ht 162.6 cm; Wt 110.4 kg
[~2018-07-24 10:16] MED LIST changes: +FURO40TA4 PO; -HYDR-4383 PO; +LACT10SO32 PO; +MONT10TA24 PO; +OLAN5TAB26 PO; +PANT40TA4 PO; +PROP10TA10 PO; +RIFA550T PO; +SPIR25TA PO; +VENL75CA61 PO
[2018-07-24] MEDS ORDERED: ondansetron/PF 4mg/2ml inj IV ONE (10:35)
[2018-07-24] MEDS ORDERED: normal saline 1000ML IV soln IVB ONE (10:35)
[2018-07-24] MEDS ORDERED: normal saline 1000ML IV soln IV ONE (10:50)
[2018-07-24 10:53] LABS: BASOPHILS % (AUTO) 0.2 % (0-1); EOSINOPHILS # (AUTO) 0.2 X10'3 (0-0.9); EOSINOPHILS % (AUTO) 1.1 % (0-6); HEMATOCRIT 30.9 % (35.0-45.0); HEMOGLOBIN 10.6 g/dl (12.0-16.0); LYMPHOCYTES # (AUTO) 2.5 X10'3 (1.1-4.8); LYMPHOCYTES % (AUTO) 14.9 % (21-51); MEAN CORPUSCULAR HEMOGLOBIN 34.4 PG (27.0-31.0); MEAN CORPUSCULAR HGB CONC 34.2 % (33.0-36.5); MEAN CORPUSCULAR VOLUME 100.6 FL (78-98); MEAN PLATELET VOLUME 6.5 FL (7.4-10.4); MONOCYTES # (AUTO) 1.2 X10'3 (0-0.9); MONOCYTES % (AUTO) 7.2 % (2-12); NEUTROPHILS % (AUTO) 76.6 % (42-75); PLATELET COUNT 272 X10'3 (140-440); RED BLOOD COUNT 3.07 X10'6 (4.20-5.60); RED CELL DISTRIBUTION WIDTH 15.9 % (11.5-14.5)
[2018-07-24] MEDS ORDERED: piperacillin/tazo 3.375gm/50ml 50 ML IV ONE (11:00)
[2018-07-24 11:18] LABS: ALANINE AMINOTRANSFERASE 30 U/L (12-78); ALBUMIN 1.7 G/DL (3.4-5.0); ALKALINE PHOSPHATASE 166 IU/L (46-116); ANION GAP 12 (8-16); BILIRUBIN,TOTAL 27.6 MG/DL (0.1-1.0); BLOOD UREA NITROGEN 9 MG/DL (7-18); BUN/CREATININE RATIO 6.7 (6.6-38.0); CALCIUM 8.6 MG/DL (8.5-10.1); CHLORIDE 91 MMOL/L (99-107); CREATININE 1.35 MG/DL (0.40-0.90); GLUCOSE 121 MG/DL (70-104); LIPASE 148 U/L (73-393); SODIUM 131 MMOL/L (135-145); TOTAL CARBON DIOXIDE 28.4 MMOL/L (24-32); TOTAL PROTEIN 5.3 G/DL (6.4-8.2); eGFR 39 ML/MIN
[2018-07-24 11:19] LABS: ALBUMIN/GLOBULIN RATIO 0.5 (1.1-1.5); ASPARTATE AMINO TRANSFERASE 115 U/L (10-37); ETHANOL < 0.010 GM/DL (0.0-0.010)
[2018-07-24 11:21] LABS: INR 1.8 INR; POTASSIUM 2.9 MMOL/L (3.5-5.1); PROTHROMBIN TIME 17.8 SECONDS (9.0-12.0)
[2018-07-24] MEDS ORDERED: lactulose 20gm/30ml cup PO ONE (11:55)
[2018-07-24 12:55] LABS: CLARITY,URINE SLIGHTLY CLOUDY (Clear); COLOR,URINE ORANGE (Yellow)
[2018-07-24 12:57] LABS: UA COLLECTION TYPE FOLEY CATH
[2018-07-24 13:02] LABS: BACTERIA,URINE 2+ /HPF (Neg); RBC,URINE 0-2 /HPF (0-2); SQUAMOUS EPITHELIAL CELL,UR FEW /LPF (FEW); WBC CLUMPS,URINE MODERATE /HPF (NEGATIVE)
[2018-07-24 13:03] LABS: MUCUS STRANDS FEW /LPF (Neg)
[2018-07-24 13:09] LABS: URINE AMPHETAMINE SCREEN NEGATIVE (Neg); URINE BARBITUATE SCREEN NEGATIVE (Neg); URINE BENZODIAZEPINES SCREEN NEGATIVE (Neg); URINE CANNABINOID SCREEN NEGATIVE (Neg); URINE COCAINE SCREEN NEGATIVE (Neg); URINE METHADONE SCREEN NEGATIVE (Neg); URINE OPIATE SCREEN NEGATIVE (Neg); URINE PHENCYCLIDINE SCREEN NEGATIVE (Neg)
[2018-07-24] MEDS: normal saline 1000ml 1,000 ML IV SCH ×2 (13:37→23:17)
[2018-07-24] MEDS ORDERED: diphenhydrAMINE 25mg capsule PO PRN (13:40)
[2018-07-24] MEDS ORDERED: ondansetron/PF 4mg/2ml inj IV PRN (13:40)
[2018-07-24] MEDS ORDERED: thiamine 100mg/ml 2ml inj. IV ONE (13:40)
[2018-07-24] MEDS ORDERED: magnesium Cl slow-release 64mg tablet PO PRN (13:40)
[2018-07-24] MEDS ORDERED: potassium Cl 20 mEq SR tablet PO PRN (13:40)
[2018-07-24] MEDS ORDERED: dextrose 50%-water 50ml dispensing syringe IV PRN (13:40)
[2018-07-24] MEDS ORDERED: magnesium 4gm in 100ml NS 100 ML IV PRN (13:40)
[2018-07-24] MEDS ORDERED: LORazepam 1 MG tablet PO PRN (13:40)
[2018-07-24] MEDS ORDERED: potassium Cl 40MEQ/NS 500ml 500 ML IV PRN (13:40)
[2018-07-24 16:05] VITALS: BP 84/51
[2018-07-24] MEDS: potassium Cl 20 mEq SR tablet PO PRN ×2 (19:15→23:09)
[2018-07-24 20:00] VITALS: BP_SYST 78; BP_SYST 81; BP_DIAS 39; BP_DIAS 40
[2018-07-24 20:15] VITALS: BP 86/56
[2018-07-25] VITALS (7 sets, daily range): BP systolic 84–97; BP diastolic 45–56
[2018-07-25] MEDS: potassium Cl 20 mEq SR tablet PO PRN (03:07)
[2018-07-25 05:48] LABS: BASOPHILS % (AUTO) 0.2 % (0-1); EOSINOPHILS # (AUTO) 0.2 X10'3 (0-0.9); EOSINOPHILS % (AUTO) 1.6 % (0-6); HEMATOCRIT 27.2 % (35.0-45.0); HEMOGLOBIN 9.4 g/dl (12.0-16.0); LYMPHOCYTES # (AUTO) 2.3 X10'3 (1.1-4.8); LYMPHOCYTES % (AUTO) 15.5 % (21-51); MEAN CORPUSCULAR HEMOGLOBIN 34.6 PG (27.0-31.0); MEAN CORPUSCULAR HGB CONC 34.4 % (33.0-36.5); MEAN CORPUSCULAR VOLUME 100.5 FL (78-98); MEAN PLATELET VOLUME 6.4 FL (7.4-10.4); MONOCYTES # (AUTO) 1.3 X10'3 (0-0.9); MONOCYTES % (AUTO) 8.6 % (2-12); NEUTROPHILS # (AUTO) 11.1 X10'3 (1.8-7.7); NEUTROPHILS % (AUTO) 74.1 % (42-75); PLATELET COUNT 226 X10'3 (140-440); RED BLOOD COUNT 2.71 X10'6 (4.20-5.60); RED CELL DISTRIBUTION WIDTH 16.1 % (11.5-14.5); WHITE BLOOD COUNT 14.9 X10'3 (4.5-11.0)
[2018-07-25 06:00] LABS: ALBUMIN 1.4 G/DL (3.4-5.0); ANION GAP 11 (8-16); BLOOD UREA NITROGEN 10 MG/DL (7-18); BUN/CREATININE RATIO 7.6 (6.6-38.0); CALCIUM 8.1 MG/DL (8.5-10.1); CHLORIDE 96 MMOL/L (99-107); CREATININE 1.32 MG/DL (0.40-0.90); MAGNESIUM 1.8 MG/DL (1.5-2.4); SODIUM 132 MMOL/L (135-145); TOTAL CARBON DIOXIDE 25.2 MMOL/L (24-32); eGFR 41 ML/MIN
[2018-07-25 06:08] LABS: GLUCOSE 131 MG/DL (70-104)
[2018-07-25 07:08] LABS: POTASSIUM 2.9 MMOL/L (3.5-5.1)
[2018-07-25] MEDS ORDERED: CefTRIAXone/D5W-Rocephin 1gm 50 ML IV SCH (08:00)
[2018-07-25] MEDS ORDERED: K and/or MAG REPLACEMENT MC SCH (08:00)
[2018-07-25] MEDS: potassium Cl 40MEQ/NS 500ml 500 ML IV PRN ×2 (09:28→14:32)
[2018-07-25] MEDS: normal saline 1000ml 1,000 ML IV SCH (09:37)
[2018-07-25 14:13] LABS: ALANINE AMINOTRANSFERASE 26 U/L (12-78); ALKALINE PHOSPHATASE 145 IU/L (46-116); BILIRUBIN,TOTAL 24.2 MG/DL (0.1-1.0)
[2018-07-25 14:29] LABS: ALBUMIN/GLOBULIN RATIO 0.4 (1.1-1.5); ASPARTATE AMINO TRANSFERASE 99 U/L (10-37); BILIRUBIN,DIRECT 19.3 MG/DL (0-0.3); TOTAL PROTEIN 4.6 G/DL (6.4-8.2)
[2018-07-25] MEDS ORDERED: lactobacillus rhamnosus 10,000 MMU CELLS/CAPSULE PO SCH (20:00)
== END 2018-07-25 19:45 | disposition short-term general hospital (02) | DRG 432 ==
LOC: ER 10:17 → ED HOLD 13:37 → SUR 3N 15:37
PROVIDERS: ADMIT Internal Medicine; ATTEND Internal Medicine
DX: K70.30 Alcoholic cirrhosis of liver without ascites (principal); K72.00 Acute and subacute hepatic failure without coma; K65.2 Spontaneous bacterial peritonitis; N17.9 Acute kidney failure, unspecified; D63.8 Anemia in other chronic diseases classified elsewhere; Z60.2 Problems related to living alone; E11.22 Type 2 diabetes mellitus with diabetic chronic kidney disease; E87.6 Hypokalemia; N18.9 Chronic kidney disease, unspecified; Z90.710 Acquired absence of both cervix and uterus; Z88.8 Allergy status to other drugs, medicaments and biological substances; Z79.899 Other long term (current) drug therapy; Z82.49 Family history of ischemic heart disease and other diseases of the circulatory system
CPT/HCPCS: 36415; 71045; 76700; 80048; 80053; 80076; 80305; 80320; 81001; 82140; 82948; 83605; 83690; 83735; 85025; 85610; 87040; 87070; 87077; 87088; 87186; 93005; 96365; 96375; 99291; G0378; J0696; J2405; J2543; J3411; J3480; J7030

== ENCOUNTER 2018-08-02 15:53 | Inpatient (IN) | payer OTHER ==
[~2018-08-02] VITALS: Ht 162.6 cm; Wt 121.7 kg
[2018-08-02 23:10] VITALS: BP 100/50
[2018-08-02] MEDS ORDERED: proCHLORperazine 10 MG/2 ml inj IV PRN (23:30)
[2018-08-02] MEDS ORDERED: magnesium hydroxide 30ml (MOM) UD suspension PO PRN (23:35)
[2018-08-02] MEDS ORDERED: ondansetron/PF 4mg/2ml inj IV PRN (23:35)
[2018-08-02] MEDS ORDERED: acetaminophen 325mg tablet PO PRN (23:35)
[2018-08-02] MEDS ORDERED: mag hydrox/Alum hydrox/simeth 30ml oral suspension PO PRN (23:35)
[2018-08-03] MEDS ORDERED: OLAN5TAB3 PO (00:42)
[2018-08-03] MEDS ORDERED: PANT-47 PO (00:42)
[2018-08-03] MEDS ORDERED: ACET-812 PO (00:42)
[2018-08-03] MEDS ORDERED: VENL75CA55 PO (00:42)
[2018-08-03] MEDS ORDERED: SUCR1ORA12 PO (00:42)
[2018-08-03] MEDS ORDERED: ONDA8TAB9 PO (00:42)
[2018-08-03] MEDS ORDERED: ZOSYN 3.373.375 GM/5 IV (00:42)
[2018-08-03] MEDS ORDERED: OXYC-580 PO (00:42)
[2018-08-03] MEDS ORDERED: AMMO226L2 TOP (00:42)
[2018-08-03] MEDS ORDERED: NYSPWD TP (00:42)
[2018-08-03] MEDS ORDERED: TRAM50TA2 PO (00:42)
[2018-08-03] MEDS ORDERED: acetaminophen 325mg tablet PO PRN (01:40)
[2018-08-03] MEDS ORDERED: montelukast 10mg tablet PO PRN (01:40)
[2018-08-03] MEDS ORDERED: ondansetron 4mg rapidly disintigrating tab PO PRN (02:00)
[2018-08-03] MEDS: lactulose 20gm/30ml cup PO SCH ×4 (03:19→20:39)
[2018-08-03] MEDS ORDERED: pantoprazole 40mg Tablet.DR PO SCH (07:30)
[2018-08-03] MEDS: furosemide 40mg tablet PO SCH (07:37)
[2018-08-03] MEDS: spironolactone 25 MG tablet PO SCH (07:37)
[2018-08-03] MEDS: pantoprazole 40mg Tablet.DR PO SCH ×2 (07:37→20:40)
[2018-08-03] MEDS: propranolol 10mg tablet PO SCH ×3 (07:37→20:41)
[2018-08-03] MEDS: olanzapine 10mg tablet PO SCH ×2 (07:38→20:39)
[2018-08-03] MEDS: sucralfate 1gm/10ml UD suspension PO SCH ×2 (07:38→17:05)
[2018-08-03] MEDS: venlafaxine XR 75mg capsule (Q24H) PO SCH (07:38)
[2018-08-03] MEDS: rifaximin 550mg tablet PO SCH ×2 (07:38→20:40)
[2018-08-03] MEDS: nystatin 15 GM powder TP SCH ×2 (07:39→20:40)
[2018-08-03 08:00] VITALS: BP 104/47
[2018-08-03 12:00] VITALS: BP 94/54
[2018-08-03 18:00] VITALS: BP 98/49
[2018-08-03 23:30] VITALS: BP 77/36
[2018-08-03] MEDS ORDERED: normal saline 250ml IV soln 250 ML IV ONE (23:30)
[2018-08-04] VITALS (7 sets, daily range): BP systolic 75–118; BP diastolic 35–64
[2018-08-04] MEDS: lactulose 20gm/30ml cup PO SCH ×4 (02:00→20:46)
[2018-08-04] MEDS ORDERED: normal saline 500ml IV soln 500 ML IV ONE (04:35)
[2018-08-04] MEDS: furosemide 40mg tablet PO SCH (08:00)
[2018-08-04] MEDS: propranolol 10mg tablet PO SCH ×3 (08:00→20:47)
[2018-08-04] MEDS: spironolactone 25 MG tablet PO SCH (08:18)
[2018-08-04] MEDS: olanzapine 10mg tablet PO SCH ×2 (08:33→20:46)
[2018-08-04] MEDS: venlafaxine XR 75mg capsule (Q24H) PO SCH (08:33)
[2018-08-04] MEDS: rifaximin 550mg tablet PO SCH ×2 (08:33→20:46)
[2018-08-04] MEDS: pantoprazole 40mg Tablet.DR PO SCH ×2 (08:33→20:46)
[2018-08-04] MEDS: sucralfate 1gm/10ml UD suspension PO SCH ×2 (08:34→17:36)
[2018-08-04] MEDS: nystatin 15 GM powder TP SCH ×2 (08:35→20:47)
[2018-08-05] VITALS: BP 96/50
[2018-08-05] MEDS ORDERED: HYDROcodone/acetaminophen 5mg/325mg tablet PO PRN (00:15)
[2018-08-05] MEDS: lactulose 20gm/30ml cup PO SCH ×2 (02:00→09:22)
[2018-08-05 07:00] VITALS: BP 86/42
[2018-08-05] MEDS: sucralfate 1gm/10ml UD suspension PO SCH (07:02)
[2018-08-05] MEDS: propranolol 10mg tablet PO SCH (09:21)
[2018-08-05] MEDS: spironolactone 25 MG tablet PO SCH (09:21)
[2018-08-05] MEDS: pantoprazole 40mg Tablet.DR PO SCH (09:21)
[2018-08-05] MEDS: venlafaxine XR 75mg capsule (Q24H) PO SCH (09:21)
[2018-08-05] MEDS: furosemide 40mg tablet PO SCH (09:21)
[2018-08-05] MEDS: nystatin 15 GM powder TP SCH (09:22)
[2018-08-05] MEDS: rifaximin 550mg tablet PO SCH (09:22)
[2018-08-05] MEDS: olanzapine 10mg tablet PO SCH (09:26)
[2018-08-05 11:00] VITALS: BP 84/38
== END 2018-08-05 13:35 | disposition hospice, inpatient (51) | DRG 443 ==
LOC: SUR 3N 22:54
PROVIDERS: ADMIT Internal Medicine; ATTEND Internal Medicine
DX: K72.90 Hepatic failure, unspecified without coma (principal); D63.8 Anemia in other chronic diseases classified elsewhere; Z51.5 Encounter for palliative care; Z90.710 Acquired absence of both cervix and uterus; Z79.899 Other long term (current) drug therapy; Z88.8 Allergy status to other drugs, medicaments and biological substances
CPT/HCPCS: 87070; G0378; J3490; J7030